=== PATIENT | male | born 1950 | race Caucasian/White ===

== ENCOUNTER → 2017-10-16 | Day surgery (SDC) | payer OTHER ==
[2017-10-15 15:15] VITALS: BMI 32.2
[~2017-10-16] MED LIST: ACETAMINOPHEN 325 MG TABLET (FP) PO PRN; BUPIVACAINE HCL/PF 0.5% (5MG/ML) 10 ML VIAL IJ ONE; BUPIVACAINE HCL/PF 0.5% (5MG/ML) 10 ML VIAL ONE; DEXAMETHASONE SOD PHOSPHATE 4 MG/1 ML VIAL ONE; LACTATED RINGERS SOLUTION 1,000 ML IV SCH; ONDANSETRON 4 MG/2 ML VIAL IVPUSH PRN; PROPOFOL 20 ML ONE; SUCCINYLCHOLINE CHLORIDE 200 MG/10 ML VIAL ONE; ceFAZolin SODIUM 1 GM VIAL IVPB ONE; ceFAZolin SODIUM 1 GM VIAL ONE
--- NOTE | 2017-10-16 15:12 | HP ---
Admitting History and Physical - Admission History of Present Illness: The patient is a 66 yo male with a history HTN, chronic kidney disease who presents today for repair umbilical hernia. He states that he has had the hernia for >10 years. Recently it has been bothering him more often since he gained some weight. No nausea or emesis and having normal bowel movements. He denies any CP/SOB or fevers. 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 No: Deep Vein Thrombosis Pulmonary: No: Asthma, COPD Gastrointestinal: Yes: Other (has had normal coonscopy in the past several years ). No: Constipation Renal/: Yes: Renal Inusuff Endocrine: Yes: Hypothyroidism (right inguinal hernia repair, R cataract surgery ) - Smoking History Smoking history: Never smoked Aproximately how many cigarettes per day: 0 - Alcohol/Substance Use Hx Alcohol Use: Yes (RARE) Home Medications - Allergies Allergies/Adverse Reactions: Allergies Allergy/AdvReac Type Severity Reaction Status Date / Time ALLERGY TO SOMETHING UNKNOWN Allergy Uncoded 10/15/17 15:15 - Home Medications Home Medications: Ambulatory Orders Allopurinol [Zyloprim] 150 mg PO DAILY 06/12/12 Aspirin [ASA] 81 mg PO DAILY 06/12/12 Atorvastatin Ca [Lipitor] 5 mg PO HS 10/15/17 Cetirizine HCl [Zyrtec -] 10 mg PO DAILY 10/15/17 Levothyroxine [Synthroid -] 25 mcg PO DAILY 10/15/17 Valsartan/Hydrochlorothiazide [Valsartan-Hctz 160-25 mg Tab] 1 each PO HS Review of Systems - Review of Systems Constitutional: denies: Chills, Fever HENT: reports: Other (recently ringing in his ears, had MRI and was seen by neurologist. No active problems) Neck: denies: Decreased ROM, Pain on Movement Cardiovascular: denies: Chest Pain, Palpitations Respiratory: denies: Cough, SOB Gastrointestinal: reports: Abdominal Pain (mild pain at umbilical hernia). denies: Constipation, Nausea, Vomiting Genitourinary: denies: Burning, Dysuria Musculoskeletal: denies: Back Pain, Decreased ROM, Joint Swelling Neurological: reports: Other (rining in ears, improved). denies: Parasthesia, Seizure Hematology/Lymphatic: denies: Easily Bruised, Excessive Bleeding Physical Examination Vital Signs: Vital Signs Temperature 97.9 F 10/16/17 12:38 Pulse Rate 77 10/16/17 12:38 Respiratory Rate 18 10/16/17 12:38 Blood Pressure 129/95 10/16/17 12:38 O2 Sat by Pulse Oximetry (%) 95 10/16/17 13:00 Constitutional: Yes: Well Nourished, Calm Eyes: Yes: WNL, Conjunctiva Clear. No: Sclera Icterus HENT: Yes: Atraumatic, Normocephalic Neck: Yes: Supple, Trachea Midline Cardiovascular: Yes: Regular Rate and Rhythm. No: Bruit Respiratory: Yes: Regular, CTA Bilaterally Gastrointestinal: Yes: Normal Bowel Sounds, Soft, Other (non-reducible umbilical hernia, non-tender. scar to right inguinal region(healed)) Extremities: No: Calf Tenderness, Deformity Edema: No Peripheral Pulses WNL: Yes Peripheral Pulses: Left Doralis Pedis: 4+, Right Dorsalis Pedis: 4+ Neurological: Yes: WNL, Alert, Oriented ...Motor Strength: LUE, LLE, RUE, RLE Psychiatric: Yes: Alert, Oriented Assessment/Plan A/P: 66 yo male with umbilical hernia for repair to day with Dr. Burrows Medical clearance in his chart, aw well as outpt labs(reviewed) He remains npo for the procedure DVT ppx with SCD/early ambulation D/w Dr. Burrows, repair today will be open repair
--- NOTE | 2017-10-16 16:10 | OP ---
Operative Note - Note: Operative Date: 10/16/17 Pre-Operative Diagnosis: umbilical hernia Operation: umbilical hernia repair with mesh Implants: mesh Post-Operative Diagnosis: Same as Pre-op Surgeon: Abhinav Hall Punch Press Setter: Macho Fernando Anesthesia: General Specimens Removed: hernia sac and contents Estimated Blood Loss (mls): 1
--- NOTE | 2017-10-16 16:19 | SURG ---
Surgery Email Deployment Specialist Note Email Deployment Specialist: Macho Fernando PA-C Date of Service: 10/16/17 Diagnosis: Incarcerated umbilical hernia (omentum/viable) Procedure: umbilical hernia repair with mesh I was present for the entirety of the operative procedure. For further detail, please refer to operative report. Visit type - Case Type Case Type: Scheduled Admission - New patient This patient is new to me today: Yes Date on this admission: 10/16/17
[2017-10-16 17:50] VITALS: PULSE 96; TEMP 97.6
[2017-10-16 19:09] VITALS: BP 128/95
--- NOTE | 2017-10-17 08:08 | OP ---
DATE OF OPERATION: 10/16/2017 PREOPERATIVE DIAGNOSIS: Umbilical hernia. POSTOPERATIVE DIAGNOSIS: Incarcerated umbilical hernia. SURGEON: Abhinav Hall MD FLORIST MANAGER: CATARINO Nathan COMPLICATIONS: None. BLEEDNG: Minimal. CONDITION: Patient tolerated the procedure well. ANESTHESIA: General anesthesia. INDICATIONS: This is a 66-year-old male who presented with a bulging mass in the supraumbilical aspect of the abdomen near the umbilicus. Physical examination was consistent with evidence of incarcerated umbilical hernia with omental incarceration, and the patient was referred for surgical repair. Medical clearance was obtained. DESCRIPTION OF PROCEDURE: He was taken to the operating room, placed in supine position. After the induction of general anesthesia with LMA, he was then prepped and draped in the usual sterile fashion. After standard time-out was observed, then, the operation was begun with a periumbilical incision superior to the umbilicus, performed with a scalpel for approximately 4 cm. The sac appeared to be quite superficial at the dermis and it was slowly dissected circumferentially until the neck of the defect was clearly visualized at the level of the fascia. Then, the sac was divided with cautery. The omental component was then divided using cryoclamps and ligated with 2-0 Vicryl. At this point, a high flap was raised using cautery to allow for a comfortable repair as well as placement of the mesh. Interrupted 0 Vicryl sutures were placed to primarily close the defect, and a piece of ProGrip mesh was then placed on top to further reinforce it. A tacking suture brining the umbilical stalk down to the fascia was performed using a 2-0 Prolene suture, and then, the subcutaneous tissues were approximated with 3-0 Vicryl sutures. The skin was closed with 4-0 Monocryl, Dermabond was applied, and the patient was returned to the recovery room awake, alert, and in stable condition. He tolerated the procedure well. Clint [id number]
== END | disposition home or self-care (01) ==
LOC: JASUSAT 11:58
PROVIDERS: ATTEND Surgery
PROC: 0WUF0JZ Supplement Abdominal Wall with Synthetic Substitute, Open Approach (ICD-10-PCS; principal; 2017-10-16 14:00)
DX: K42.0 Umbilical hernia with obstruction, without gangrene (principal)
CPT/HCPCS: 88302-TC; 94760

== ENCOUNTER 2025-03-20 19:18 | Observation (INO) | payer OTHER ==
[2025-03-20 19:22] VITALS: BMI 31.3
[2025-03-20] MEDS ORDERED: ACETAMINOPHEN INJECTION 100 ML ONE (20:19)
[2025-03-20] MEDS ORDERED: ONDANSETRON 4 MG/2 ML VIAL ONE (20:19)
[2025-03-20] MEDS: ACETAMINOPHEN 1000 MG/100 ML BAG IVPB ONE (20:28)
[2025-03-20] MEDS: ONDANSETRON 4 MG/2 ML VIAL IVPUSH ONE (20:28)
[2025-03-20 20:34] LABS: ABSOLUTE IMMATURE GRANULOCYTES 0.09 x10^3/uL (0.0-0.031); BASOPHILS # 0.03 x10^3/uL (0.01-0.08); EOSINOPHIL % 0.4 % (0.8-7.0); EOSINOPHILS # 0.05 x10^3/uL (0.04-0.54); MCHC 32.1 g/dl (32.3-36.5); MEAN CELL VOLUME 92.5 fl (79.0-92.2); MEAN PLT VOLUME 12.0 fl (9.4-12.4); MONOCYTE # 0.48 x10^3/uL (0.30-0.82); MONOCYTE % 4.3 % (5.3-12.2); RDW 12.9 % (12.2-16.6)
[2025-03-20 20:39] LABS: EPI CELLS 7 /uL (0-25.1); HYALINE CASTS 0 /uL (0-3.1); URINE APPEARANCE CLEAR; URINE BACTERIA 16 /uL (0-1359); URINE BILIRUBIN NEGATIVE (NEGATIVE); URINE COLOR YELLOW; URINE GLUCOSE (UA) NEGATIVE (NEGATIVE); URINE KETONE 2+ (NEGATIVE); URINE LEUK ESTERASE 1+ (NEGATIVE); URINE NITRITE NEGATIVE (NEGATIVE); URINE PROTEIN 2+ (NEGATIVE); URINE RBC 180 /uL (0-23.9); URINE UROBILINOGEN 1.0 mg/dL (0.2-1.0); URINE WBC 177 /uL (0-25.8)
[2025-03-20 20:43] LABS: GLUCOSE,RANDOM 117.0 mg/dL (74-106); INR 1.2 (0.83-1.09); PROTHROMBIN TIME (PATIENT) 13.2 SEC (9.7-13.0); TOT PROT 7.1 g/dl (6.4-8.2)
[2025-03-20 20:44] LABS: CO2 26.0 mmol/L (21-32)
[2025-03-20 20:46] LABS: ALK PHOS 78.0 U/L (40-150)
[2025-03-20 20:49] LABS: CREATININE 1.15 mg/dL (0.55-1.3); SGOT/AST 30.0 U/L (5-34); SGPT/ALT 17.0 U/L (0-55)
[2025-03-20] MEDS ORDERED: KETOROLAC TROMETHAMINE 15 MG/ML VIAL ONE (22:00)
[2025-03-20] MEDS: KETOROLAC TROMETHAMINE 30 MG/1 ML VIAL IVPUSH ONE (22:05)
[2025-03-20] MEDS: POLYETHYLENE GLYCOL (HEALTHYLAX) 3350 17 GM PACKET PO SCH (22:34)
[2025-03-20] MEDS ORDERED: TAMSULOSIN HCL 0.4 MG CAP ONE (22:35)
[2025-03-20] MEDS: TAMSULOSIN HCL 0.4 MG CAP PO ONE (22:40)
[2025-03-20] MEDS ORDERED: CEFTRIAXONE 1 GM/50 ML BAG ONE (22:47)
[2025-03-20] MEDS: CEFTRIAXONE 1 GM in DEXTROSE 5%-WATER - 100 ML IVPB ONE (22:48)
[2025-03-21] MEDS ORDERED: ONDANSETRON 4 MG/2 ML VIAL ONE (00:30)
[2025-03-21] MEDS: ONDANSETRON 4 MG/2 ML VIAL IVPUSH ONE (00:57)
[2025-03-21] MEDS: DEXTROSE 5%-0.45% SALINE 1,000 ML IV SCH (03:20)
[2025-03-21] MEDS: ACETAMINOPHEN 1000 MG/100 ML BAG IVPB PRN (04:08)
[2025-03-21 05:09] VITALS: RESP 18
[2025-03-21] MEDS: KETOROLAC TROMETHAMINE 15 MG/ML VIAL IVPUSH PRN (05:14)
[2025-03-21] MEDS: LEVOTHYROXINE NA 25 MCG TABLET (FP) PO SCH (06:27)
[2025-03-21] MEDS ORDERED: ONDANSETRON 4 MG/2 ML VIAL IVPUSH PRN (07:00)
[2025-03-21 08:30] LABS: ABSOLUTE IMMATURE GRANULOCYTES 0.06 x10^3/uL (0.0-0.031); BASOPHILS # 0.02 x10^3/uL (0.01-0.08); EOSINOPHIL % 0.2 % (0.8-7.0); EOSINOPHILS # 0.02 x10^3/uL (0.04-0.54); MCHC 32.5 g/dl (32.3-36.5); MEAN CELL VOLUME 91.8 fl (79.0-92.2); MEAN PLT VOLUME 12.0 fl (9.4-12.4); MONOCYTE # 0.62 x10^3/uL (0.30-0.82); MONOCYTE % 5.8 % (5.3-12.2); RDW 13.1 % (12.2-16.6)
[2025-03-21 09:14] LABS: GLUCOSE,RANDOM 124.0 mg/dL (74-106)
[2025-03-21 09:15] LABS: TOT PROT 5.9 g/dl (6.4-8.2)
[2025-03-21] MEDS: TAMSULOSIN HCL 0.4 MG CAP PO ONE (09:15)
[2025-03-21 09:16] LABS: CO2 26.0 mmol/L (21-32)
[2025-03-21] MEDS: CEFTRIAXONE 2 GM in DEXTROSE 5%-WATER 100 ML IVPB SCH (09:16)
[2025-03-21 09:20] LABS: CREATININE 1.46 mg/dL (0.55-1.3); SGOT/AST 25.0 U/L (5-34); SGPT/ALT 12.0 U/L (0-55)
[2025-03-21] MEDS: VALSARTAN 160 MG TABLET PO SCH (09:24)
[2025-03-21] MEDS: HYDROCHLOROTHIAZIDE 12.5 MG CAPSULE (FP) PO SCH (09:24)
[2025-03-21 09:48] LABS: ALK PHOS 67.0 U/L (40-150)
[2025-03-21] MEDS ORDERED: CEFTRIAXONE 1 GM in DEXTROSE 5%-WATER - 50 ML IVPB SCH (10:00)
[2025-03-21] MEDS: SODIUM CHLORIDE 1,000 ML IV SCH (14:58)
[2025-03-21] MEDS: SODIUM CHLORIDE 250 ML IV STA (14:58)
[2025-03-21] MEDS: ATORVASTATIN CA 10 MG TABLET (FP) PO SCH (21:02)
[2025-03-22 09:51] LABS: MCHC 31.7 g/dl (32.3-36.5); MEAN CELL VOLUME 92.6 fl (79.0-92.2); MEAN PLT VOLUME 12.3 fl (9.4-12.4); RDW 12.9 % (12.2-16.6)
[2025-03-22 10:43] LABS: GLUCOSE,RANDOM 92.0 mg/dL (74-106); TOT PROT 6.4 g/dl (6.4-8.2)
[2025-03-22 10:46] LABS: ALK PHOS 68.0 U/L (40-150)
[2025-03-22 10:48] LABS: SGPT/ALT 16.0 U/L (0-55)
[2025-03-22 10:49] LABS: CREATININE 1.0 mg/dL (0.55-1.3); SGOT/AST 29.0 U/L (5-34)
[2025-03-22 11:00] LABS: GLUCOSE,RANDOM 92.0 mg/dL (74-106); TOT PROT 6.3 g/dl (6.4-8.2)
[2025-03-22 11:03] LABS: ALK PHOS 66.0 U/L (40-150)
[2025-03-22 11:05] LABS: SGOT/AST 30.0 U/L (5-34); SGPT/ALT 15.0 U/L (0-55)
[2025-03-22 11:40] LABS: CO2 31.0 mmol/L (21-32)
[2025-03-22 11:50] LABS: CREATININE 1.03 mg/dL (0.55-1.3)
[2025-03-22 11:54] LABS: CO2 30.0 mmol/L (21-32)
[2025-03-22 12:16] LABS: HIV INTERPRETATION NEGATIVE (NEGATIVE)
[2025-03-22 15:53] VITALS: BP 116/71; PULSE 67; TEMP 98.1
[2025-03-22 15:53] LABS: HCV DIAGNOSTIC IN-HOUSE W/RFLX NON-REACTIVE (NONREACTIVE)
[2025-03-22] MEDS ORDERED: POLYETHYLENE GLYCOL (HEALTHYLAX) 3350 17 GM PACKET PO SCH (22:00)
== END 2025-03-22 17:20 | disposition home or self-care (01) ==
LOC: JER 19:18 → JERBED 03-21 00:16 → J5S 03-21 02:51
PROVIDERS: ADMIT Family Medicine; ATTEND Family Medicine
DX: N17.9 Acute kidney failure, unspecified (principal); N13.30 Unspecified hydronephrosis; N28.9 Disorder of kidney and ureter, unspecified; N20.0 Calculus of kidney; N28.1 Cyst of kidney, acquired; D72.829 Elevated white blood cell count, unspecified; E80.6 Other disorders of bilirubin metabolism; N40.0 Benign prostatic hyperplasia without lower urinary tract symptoms; I10 Essential (primary) hypertension; Z87.738 Personal history of other specified (corrected) congenital malformations of digestive system; Z88.8 Allergy status to other drugs, medicaments and biological substances
CPT/HCPCS: 36415; 74177-TC; 76700-TC; 80053; 81003; 82248; 83735; 84100; 84439; 84443; 84484; 85025; 85027; 85610; 85730; 86803; 86850; 86900; 86901; 87086; 87389; 93005; 93010; 96361; 96365; 96366; 96375; 96376; 99285-25; G0378